=== PATIENT | male | born 1985 | race Caucasian/White ===

== ENCOUNTER 2018-11-20 10:43 | Emergency (ER) | payer MEDICAID, SELFPAY ==
[2018-11-20 10:44] VITALS: BP 162/96; PULSE 76; RESP 18; TEMP 36.6; O2SAT 97; BMI 25.0
--- NOTE | 2018-11-20 11:44 | ED.VIS.GEN ---
History of Present Illness Chief Complaint: Hypertension Narrative: Patient presenting for evaluation secondary to hypertension. Patient states that over the course of the last couple weeks he has been dealing with headaches. He reports that they are intermittent generalized mild and throbbing. They have been associated with no neurologic signs or symptoms such as vision changes numbness weakness. No nausea or vomiting. No recent head injuries or fevers associated with it. Patient is concerned because recently he was taking his blood pressure and noted that it persistently has been in the 160s and is never had a history of this in the past. He denies any chest pain shortness of breath or exertional dyspnea associated with this. Review of systems otherwise negative. 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 Review of Systems All systems negative except as indicated Eyes: Denies: Visual changes - bilaterally Neurological: Reports: Headache Physical Exam Vital Signs/Narrative: Vital Signs Temp Pulse Resp BP Pulse Ox 11/20/18 10:44 97.8 F 76 18 162/96 H 97 Inital Vital Signs reviewed: Yes General: Well nourished, Well developed, No Acute Distress Head: Normocephalic, Atraumatic Eyes: Perrl, EOMI, - - 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 but no evidence of retinal hemorrhages or cotton wool spots or papilledema ENT: Moist mucous membranes, No rhinorrhea Neck: Supple, Nontender Cardiovascular: Regular rate, Regular rhythm, No murmurs Respiratory: No distress, CTA bilaterally, Chest nontender Abdomen: Soft, Nontender, Nondistended, Normal bowel sounds Back: Nontender, Normal Inspection Extremities: Nontender, No edema Skin: Normal color, No rash Neurological: Alert, Oriented x3, Cranial nerves II-XII grossly intact, Normal Strength, Normal Sensation Psychological: Normal affect, Normal Mood Diagnostic/Tx/Re-eval - Medical Decision Making Patient presented with hypertension and headaches. Physical exam was benign, patient does have hypertension in the 160s. I do not believe that patient is at risk for hypertensive emergency at this point, I do not believe a work-up is indicated. Patient will be started on lisinopril as well as ibuprofen for treatment of his headaches. He will follow-up with primary care and was given a referral from the referral list. ED Disposition - Plan for ED Patient: Disposition: Home or Assisted Living Diagnosis: Hypertension Instructions: HYPERTENSION, New (Begin Treatment) Prescriptions: Lisinopril 5 mg PO DAILY #30 tab Prescription Printed Naproxen [Naprosyn] 500 mg PO BID PRN #20 tab Prescription Printed Referrals: Yonatan Arechiga III, MD [STAFF PHYSICIAN] - 1-2 Weeks
[2018-11-20 11:58] VITALS: BP 139/98; PULSE 76; RESP 16; O2SAT 98
== END 2018-11-20 11:59 | disposition home or self-care (01) ==
PROVIDERS: Emergency Provider Emergency Medicine
DX: I10 Essential (primary) hypertension (principal); Z88.0 Allergy status to penicillin
CPT/HCPCS: 99283

== ENCOUNTER → 2018-12-09 09:20 | Outpatient (CLI) | payer MEDICAID, SELFPAY ==
[2018-12-04 15:37] VITALS: BMI 25.0
[2018-12-09 12:29] LABS: Absolute Lymphocyte Count 2.22 X10^3/uL (0.83-4.51); Absolute Neutrophil Count 2.4 X10^3/uL (2.0-7.7); Basophil# 0.06 X10^3/uL; Basophil% 1.1 % (0-1); Eosinophil# 0.14 X10^3/uL; Eosinophils% 2.7 % (0-5); Hemoglobin 14.8 g/dL (13.0-16.5); Lymphocyte # 2.22 X10^3/ul (4.0); Lymphocyte % 42.1 % (19-41); Mean Corp Hgb Conc 32.2 g/dL (32-36); Mean Corpuscular Hgb 30.8 pg (27.0-32.0); Mean Corpuscular Volume 95.6 fL (80-94); Mean Platelet Vol. 10.4 fl (6.2-12.0); Monocyte# 0.45 X10^3/uL; Monocyte% 8.5 % (0-10); NRBC Flagged by Analyzer 0 % (0-5); Neutrophil # 2.39 X10^3/uL (2.7-7.7); Neutrophil % 45.4 % (47-70); Platelet Count 271 K/mm3 (150-450); RBC Distribution Width CV 13.1 % (11.6-14.6); RBC Distribution Width SD 46.6 fl (35.1-43.9); Red Blood Count 4.81 M/mm3 (4.6-6.2); White Blood Count 5.3 K/mm3 (4.4-11.0)
[2018-12-09 12:49] LABS: AST(SGOT) 143 U/L (15-37); Alanine Aminotransfer ALT/SGPT 444 U/L (16-61); Albumin, Serum 3.7 g/dL (3.2-5.0); Alkaline Phosphatase 116 U/L (45-117); Anion Gap 6 (5-15); BUN 11 mg/dL (7-18); BUN/Creat Ratio 12.9 RATIO (10-20); Calcium,Total 9.1 mg/dL (8.5-10.1); Chloride 106 mmol/L (98-107); Cholesterol 146 mg/dL (200); Creatinine, Serum 0.85 mg/dL (0.70-1.30); EST Glomerular Filtration Rate 109 mL/min (>60); Est Glom Filt Rate - Afr Amer 132 mL/min (>60); Globulin 3.7 g/dL (2.2-4.2); Glucose 86 mg/dL (74-106); High Density Lipoprotein 39 mg/dL; Potassium 4.7 mmol/L (3.5-5.1); Protein, Total 7.4 g/dL (6.4-8.2); Sodium Level 141 mmol/L (136-145); T4 Free Direct 1.03 ng/dL (0.76-1.46); Thyroid Stim Hormone (TSH) 0.85 uIU/mL (0.358-3.74); Triglycerides 120 mg/dL; Very Low Density Lipoprotein 24 mg/dL (5-40)
== END ==
PROVIDERS: PCP Internal Medicine; Visit Provider Internal Medicine
DX: I10 Essential (primary) hypertension (principal)
CPT/HCPCS: 36415; 80053; 80061; 84439; 84443; 85025